=== PATIENT | male | born 1990 | race Two or more races ===

== ENCOUNTER 2020-09-03 21:27 | Emergency (ER) | payer SELFPAY ==
[~2020-09-03] VITALS: Ht 172.7 cm; Wt 90.7 kg
[2020-09-04] MEDS ORDERED: IBUPROFEN 600 MG TAB PO ONE (01:30)
[2020-09-04 06:20] VITALS: BP 132/84
== END 2020-09-04 06:39 | disposition home or self-care (01) ==
LOC: ER 21:27
DX: M25.561 Pain in right knee (principal); M25.522 Pain in left elbow; V43.02XA Car driver injured in collision with other type car in nontraffic accident, initial encounter; Y93.89 Activity, other specified; Y92.89 Other specified places as the place of occurrence of the external cause; Y99.8 Other external cause status
CPT/HCPCS: 71101; 73060; 73562; 99284; J7030